=== PATIENT | male | born 1935 | race Caucasian/White ===

== ENCOUNTER 2018-03-29 09:21 | Emergency (ER) | payer MEDICARE, OTHER ==
[2018-03-29] MEDS ORDERED: Sodium Chloride 0.9% 300 ML IV ONE (09:32)
[2018-03-29] MEDS ORDERED: Sodium Chloride 0.9% 10 ML Syringe FLUSH PRN (09:32)
[2018-03-29] MEDS: fentaNYL 250 MCG/5 ML SDV IVPUSH ONE ×4 (09:44→10:44)
[2018-03-29] MEDS ORDERED: Heparin Sodium 5,000 UNITS/0.5 ML Syringe IVPUSH ONE (09:45)
[2018-03-29] MEDS ORDERED: Tenecteplase 50 MG Kit IV ONE (10:00)
--- NOTE | 2018-03-29 10:13 | CR ---
DATE OF SERVICE: 03/29/18 CLINICAL DATA: chest pain AP PORTABLE CHEST: The exam is mismarked for left and right. The heart size is normal. The aorta is ectatic. The patient has taken a poor inspiration. The lungs appear clear. No pneumothorax. No pleural effusions. No evidence of acute intrathoracic disease. ADDENDUM: The labeling on x-ray has been corrected in PACS. [id number] MTDD
--- NOTE | 2018-03-29 10:14 | EDM.PDOC ---
ED HPI GENERAL MEDICAL PROBLEM - General Chief Complaint: Chest Pain Stated Complaint: chest pain Time Seen by Provider: 03/29/18 09:25 Source of Information: Reports: Patient, EMS, Family, RN History Limitations: Reports: No Limitations - History of Present Illness INITIAL COMMENTS - FREE TEXT/NARRATIVE: 82 yr male presents with chest pain, started 830am this am while doing chores in house. Ambulance picked up pt at home, EKG done, ASA and nitro given en route. EKG repeated and STEMI noted. inferior-lateral with heart rate 40's on admit. Contact [facility] to assist with documentation and with physcian assist. Pain 7/10 on admit. Pt allergic to MS with nausea and sweaty reaction. Pt is alert and talkative. Fentanyl given X 2 for relief of pain. Pt noted hx of Htn and takes losartan/Hctz and levothyroxine and baby ASA daily. States he has been healthy and no other health concerns. Troponins 1.8 and elevated. Contact [facility], Cardiology Dr Bradley accepted pt and Plavix given, TNK started and Heparin bolus and maintenance qtt started. Pt states pain is some improved. Most recent ETA of 10:40 this am. 660 of Nacl in IV for now. Pain is about 1-2/10 now. is on her way to [facility], name is Mandy. . - Related Data Allergies Allergy/AdvReac Type Severity Reaction Status Date / Time morphine Allergy Nausea and Verified 03/29/18 10:32 Vomiting Penicillins Allergy Cannot Verified 03/29/18 10:32 Remember Sulfa (Sulfonamide Allergy Cannot Verified 03/29/18 10:32 Antibiotics) Remember Home Meds: Home Meds Aspirin [Shay Chewable] 81 mg PO DAILY 03/29/18 [History] Levothyroxine 75 mcg PO ACBREAKFAST 03/29/18 [History] Losartan/Hydrochlorothiazide [Losartan-HCTZ 50-12.5 MG] 1 each PO DAILY [History] ED ROS GENERAL - Review of Systems Review Of Systems: See Below Constitutional: Reports: Diaphoresis HEENT: Reports: Glasses Respiratory: Reports: No Symptoms Cardiovascular: Reports: Chest Pain. Denies: Edema Endocrine: Reports: No Symptoms GI/Abdominal: Reports: No Symptoms : Reports: No Symptoms Musculoskeletal: Reports: No Symptoms Skin: Reports: Diaphoresis, Other (pink, warm, moist) Neurological: Reports: No Symptoms. Denies: Confusion, Dizziness Psychiatric: Reports: No Symptoms Hematologic/Lymphatic: Reports: No Symptoms Immunologic: Reports: No Symptoms ED EXAM, GENERAL - Physical Exam Exam: See Below Exam Limited By: No Limitations General Appearance: Alert, Mild Distress Ears: Hearing Loss Nose: Normal Inspection, Normal Mucosa Throat/Mouth: Normal Lips, Normal Voice, No Airway Compromise Head: Atraumatic, Normocephalic Neck: Normal Inspection, Supple, Non-Tender Respiratory/Chest: Lungs Clear, Normal Breath Sounds Cardiovascular: Regular Rate, Rhythm, No Edema GI/Abdominal: Normal Bowel Sounds, Soft, Non-Tender Back Exam: No: Paraspinal Tenderness, Vertebral Tenderness Extremities: Normal Inspection, Normal Range of Motion, Non-Tender, No Pedal Edema Neurological: Alert, Oriented, Normal Cognition Psychiatric: Normal Affect, Normal Mood Skin Exam: Warm, Intact, Diaphoretic Lymphatic: No Adenopathy Course - Orders/Labs/Meds Orders: Active Orders 24 hr Category Date Time Status Cardiac Monitoring [RC] .As Directed Care 03/29/18 09:33 Active EKG Documentation Completion [RC] ASDIRECTED Care 03/29/18 09:34 Active Heparin Sodium/D5W [Heparin 25,000 Units in D5W 500 ML] Med 03/29/18 10:45 Active 25,000 units in 500 ml IV TITRATE Peripheral IV Insertion Adult [OM.PC] Stat Oth 03/29/18 09:32 Ordered Medication Orders Heparin Sodium/Dextrose (Heparin 25,000 Units In D5w 500 Ml) 25,000 units in 500 mls @ 19.08 mls/hr IV TITRATE BRUCE; Protocol Labs: Laboratory Tests 03/29/18 03/29/18 03/29/18 Range/Units 09:25 09:25 09:25 WBC 9.1 (4.0-11.0) K/uL RBC 4.72 (4.50-6.50) M/uL Hgb 14.7 (13.0-18.0) g/dL Hct 43.2 (40.0-54.0) % MCV 92 (76-96) fL MCH 31.1 (27.0-32.0) pg MCHC 34.0 (31.0-35.0) g/dL RDW 13.2 (11.0-16.0) % Plt Count 239 (150-400) K/uL MPV 11.0 H (6.0-10.0) fL Neut % (Auto) 46.8 (45.0-70.0) % Lymph % (Auto) 38.3 (20.0-40.0) % Gonzales % (Auto) 12.7 H (3.0-10.0) % Eos % (Auto) 1.8 (1.0-5.0) % Baso % (Auto) 0.4 (0.0-0.5) % Neut # (Auto) 4.27 (2.00-7.50) K/uL Lymph # (Auto) 3.50 (1.50-4.00) K/uL Gonzales # (Auto) 1.16 H (0.20-0.80) K/uL Eos # (Auto) 0.16 (0.04-0.40) K/uL Baso # (Auto) 0.04 (0.02-0.10) K/uL APTT 23.7 L (24.4-33.2) SECONDS Sodium (136-145) mmol/L Potassium (3.5-5.1) mmol/L Chloride (98-107) mmol/L Carbon Dioxide (21.0-32.0) mmol/L Anion Gap (5.0-15.0) mmol/L BUN (8-26) mg/dL Creatinine (0.70-1.30) mg/dL Est Cr Clr Drug Dosing Estimated GFR (MDRD) (>60) MLS/MIN BUN/Creatinine Ratio (6-25) Glucose (74-100) mg/dL Calcium (8.5-10.1) mg/dL Total Bilirubin (0.0-1.0) mg/dL AST (15-37) U/L ALT (12-78) U/L Alkaline Phosphatase (46-116) U/L Troponin I (0.000-0.060) ng/mL Total Protein (6.4-8.2) g/dL Albumin (3.4-5.0) g/dL Globulin (2.2-4.2) g/dL Albumin/Globulin Ratio (0.8-2.0) TSH, Ultra Sensitive 1.859 (0.358-3.740) uIU/mL 03/29/18 Range/Units 09:32 WBC (4.0-11.0) K/uL RBC (4.50-6.50) M/uL Hgb (13.0-18.0) g/dL Hct (40.0-54.0) % MCV (76-96) fL MCH (27.0-32.0) pg MCHC (31.0-35.0) g/dL RDW (11.0-16.0) % Plt Count (150-400) K/uL MPV (6.0-10.0) fL Neut % (Auto) (45.0-70.0) % Lymph % (Auto) (20.0-40.0) % Gonzales % (Auto) (3.0-10.0) % Eos % (Auto) (1.0-5.0) % Baso % (Auto) (0.0-0.5) % Neut # (Auto) (2.00-7.50) K/uL Lymph # (Auto) (1.50-4.00) K/uL Gonzales # (Auto) (0.20-0.80) K/uL Eos # (Auto) (0.04-0.40) K/uL Baso # (Auto) (0.02-0.10) K/uL APTT (24.4-33.2) SECONDS Sodium 137 (136-145) mmol/L Potassium 4.0 (3.5-5.1) mmol/L Chloride 100 (98-107) mmol/L Carbon Dioxide 23.7 (21.0-32.0) mmol/L Anion Gap 17.3 H (5.0-15.0) mmol/L BUN 19 (8-26) mg/dL Creatinine 1.26 (0.70-1.30) mg/dL Est Cr Clr Drug Dosing TNP Estimated GFR (MDRD) 55 L (>60) MLS/MIN BUN/Creatinine Ratio 15.1 (6-25) Glucose 120 H (74-100) mg/dL Calcium 8.6 (8.5-10.1) mg/dL Total Bilirubin 0.6 (0.0-1.0) mg/dL AST 34 (15-37) U/L ALT 23 (12-78) U/L Alkaline Phosphatase 48 (46-116) U/L Troponin I 1.823 H* (0.000-0.060) ng/mL Total Protein 7.0 (6.4-8.2) g/dL Albumin 3.4 (3.4-5.0) g/dL Globulin 3.6 (2.2-4.2) g/dL Albumin/Globulin Ratio 0.9 (0.8-2.0) TSH, Ultra Sensitive (0.358-3.740) uIU/mL Meds: Medications Generic Name Dose Route Start Last Admin Trade Name Freq PRN Reason Stop Dose Admin Heparin Sodium/Dextrose 25,000 units in 500 mls @ 19.08 mls/hr 03/29/18 10:45 Heparin 25,000 Units In D5w 500 Ml IV TITRATE BRUCE Protocol 12 UNITS/KG/HR Discontinued Medications Generic Name Dose Route Start Last Admin Trade Name Freq PRN Reason Stop Dose Admin Clopidogrel Bisulfate 75 mg 03/29/18 10:37 03/29/18 09:52 Plavix PO 03/29/18 10:38 75 mg ONETIME ONE Administration Fentanyl 25 mcg 03/29/18 10:42 03/29/18 10:44 Sublimaze IVPUSH 03/29/18 10:43 25 mcg ONETIME ONE Administration Fentanyl 50 mcg 03/29/18 09:45 03/29/18 10:04 Sublimaze IVPUSH 03/29/18 09:46 50 mcg ONETIME ONE Administration Fentanyl 50 mcg 03/29/18 16:17 Sublimaze IVPUSH 03/29/18 16:18 ONETIME ONE Heparin Sodium (Porcine) 4,000 units 03/29/18 09:45 03/29/18 09:54 Heparin Sodium IVPUSH 03/29/18 09:46 4,000 units ONETIME ONE Administration Sodium Chloride 300 mls @ 1,000 mls/hr 03/29/18 09:32 03/29/18 09:24 Normal Saline IV 03/29/18 09:49 999 mls/hr .BOLUS ONE Administration Sodium Chloride 1,000 mls @ 75 mls/hr 03/29/18 10:35 Normal Saline IV ASDIRECTED BRUCE Sodium Chloride 10 ml 03/29/18 09:32 Saline Flush FLUSH ASDIRECTED PRN Keep Vein Open Tenecteplase 40 mg 03/29/18 10:00 03/29/18 09:59 Tnkase IV 03/29/18 10:01 40 mg ONETIME ONE Administration Protocol - Re-Assessments/Exams Free Text/Narrative Re-Assessment/Exam: 03/29/18 10:18 Pt is resting and pain is 1-2/10. TNK is administered, heparin qtt is going, Plavix was given. X-ray chest 1V completed and radiology contacted provider and states no abnormal noted. Julia is continuing with notes for the pt. Cholo Thakur [facility] on way for transport and contacted them with update on pt. 03/29/18 10:47 Pt states his pain comes and goes Fentanyl 25 given IV now. States pain is 1-2/10 now. Pt smiling and talking about family. Cholo Thak[facility] called to update on ETA and about here. 03/29/18 11:00 BENNETT [facility] is here and transfer of care with update on pt status and treatment thus far. Heparin IV qtt continues 950 units/hr (12 units/kg/hr) (weight of 79.5 kg). Oxygen at 4LPM and SpO2 maintained 95-97%. BP stable 109/68. Heart rate, bradycardic at rate of 40-60 with possible heart block. Pain has been controlled with Fentanyl 25-50 mcg IV as needed, as he has had a reaction of itchiness with the Morphine Sulfate in the past. Pt transferred to [facility], to Dr Bradley, cardiology. 11:17 pt transferred. Departure - Departure Time of Disposition: 11:17 Disposition: DC/Tfer to Acute Hospital 02 Reason for Transfer *Q: Primary PCI Indicated Condition: Good Clinical Impression: Acute myocardial infarction Referrals: PCP,None [Primary Care Provider] - Forms: ED Department Discharge - My Orders Last 24 Hours: My Active Orders 03/29/18 09:32 Peripheral IV Insertion Adult [OM.PC] Stat 03/29/18 09:33 Cardiac Monitoring [RC] .As Directed 03/29/18 09:34 EKG Documentation Completion [RC] ASDIRECTED 03/29/18 10:45 Heparin Sodium/D5W [Heparin 25,000 Units in D5W 500 ML] 25,000 units in 500 ml IV TITRATE - Assessment/Plan Last 24 Hours: My Active Orders 03/29/18 09:32 Peripheral IV Insertion Adult [OM.PC] Stat 03/29/18 09:33 Cardiac Monitoring [RC] .As Directed 03/29/18 09:34 EKG Documentation Completion [RC] ASDIRECTED 03/29/18 10:45 Heparin Sodium/D5W [Heparin 25,000 Units in D5W 500 ML] 25,000 units in 500 ml IV TITRATE Plan: [facility] is here and transfer of care with update on pt status and treatment thus far. Heparin IV qtt continues 950 units/hr (12 units/kg/hr) (weight of 79.5 kg). Oxygen at 4LPM and SpO2 maintained 95-97%. BP stable 109/68. Heart rate, bradycardic at rate of 40-60 with possible heart block. Pain has been controlled with Fentanyl 25-50 mcg IV as needed, as he has had a reaction of itchiness with the Morphine Sulfate in the past. Pt transferred to [facility], to Dr Bradley, cardiology.
[2018-03-29] MEDS ORDERED: Sodium Chloride 0.9% 1,000 ML IV SCH (10:35)
[2018-03-29] MEDS ORDERED: Clopidogrel 75 MG Tab PO ONE (10:37)
[2018-03-29] MEDS ORDERED: Heparin Sodium/D5W 25,000 UNITS/500 ML BAG IV SCH (10:45)
[2018-03-29] MEDS ORDERED: Nitroglycerin 0.4 MG Tab.SL ONE (11:40)
[2018-03-29] MEDS ORDERED: Aspirin 81 MG Tab.EC ONE (11:40)
[2018-03-29] MEDS ORDERED: fentaNYL 250 MCG/5 ML SDV IVPUSH ONE (16:17)
== END 2018-03-29 11:17 ==
LOC: LB.ED 09:21
DX: I21.9 Acute myocardial infarction, unspecified (principal); Z79.82 Long term (current) use of aspirin; Z79.899 Other long term (current) drug therapy; Z88.5 Allergy status to narcotic agent; Z88.0 Allergy status to penicillin; Z88.2 Allergy status to sulfonamides
CPT/HCPCS: 36415; 71045; 80053; 84443; 84484; 85025; 85730; 93005; 96374; 96375; 99285-25; A9270-GY; J1644; J1644-GY; J3010; J3101; J7030; J7050

== ENCOUNTER 2018-04-17 08:54 | Emergency (ER) | payer MEDICARE, OTHER ==
--- NOTE | 2018-04-17 09:17 | EDM.PDOC ---
ED HPI GENERAL MEDICAL PROBLEM - General Chief Complaint: General Stated Complaint: low blood pressure Time Seen by Provider: 04/17/18 09:00 Source of Information: Reports: Patient History Limitations: Reports: No Limitations - History of Present Illness INITIAL COMMENTS - FREE TEXT/NARRATIVE: Pt is 82 /male who presents to the emergency room with c/o low blood pressure. Pt claims the he ate his breakfast around 8 am today and was sitting. He tried to get up and felt dizzy and lightheaded, but did not pass out. He went and checked his blood pressure, initial blood pressure was 63/30mmhg. He repeated it in next few minutes and it was 73/52mmhg. The dizziness last for about 30 minutes and resolved. His blood pressure still remained in systolic 70s. Pt claims that he felt a little pressure in his chest when he walked from home into the car, but it resolved.Presently not dizzy. Patient's inital vitals were Temp 98.7F ,Pulse of 82/min, BP was 120/72mmhg and respi of 18. Onset: Today Onset Date: 04/17/18 Onset Time: 08:00 Duration: Resolved Prior to Arrival Improves with: Reports: None Worsens with: Reports: None Associated Symptoms: Denies: Confusion, Chest Pain, Cough, Diaphoresis, Fever/ Chills, Nausea/Vomiting, Rash, Seizure, Shortness of Breath, Weakness - Related Data Allergies Allergy/AdvReac Type Severity Reaction Status Date / Time morphine Allergy Nausea and Verified 04/17/18 10:03 Vomiting Penicillins Allergy Cannot Verified 04/17/18 10:03 Remember Sulfa (Sulfonamide Allergy Cannot Verified 04/17/18 10:03 Antibiotics) Remember Home Meds: Home Meds Aspirin [Shay Chewable] 81 mg PO DAILY 03/29/18 [History] Levothyroxine 75 mcg PO ACBREAKFAST 03/29/18 [History] Losartan/Hydrochlorothiazide [Losartan-HCTZ 50-12.5 MG] 1 each PO DAILY [History] atorvaSTATin Calcium [Lipitor] 40 mg PO BEDTIME 04/17/18 [History] ED ROS GENERAL - Review of Systems Review Of Systems: See Below Constitutional: Denies: Fever, Chills, Weakness HEENT: Denies: Rhinitis, Throat Pain Respiratory: Denies: Shortness of Breath, Pleuritic Chest Pain, Cough, Sputum Cardiovascular: Reports: Lightheadedness. Denies: Chest Pain GI/Abdominal: Denies: Abdominal Pain, Nausea, Vomiting : Denies: Dysuria, Flank Pain Musculoskeletal: Denies: Joint Pain, Joint Swelling Skin: Denies: Bruising, Pruritis, Rash Neurological: Reports: Dizziness. Denies: Confusion, Headache, Numbness, Tingling, Trouble Speaking, Difficulty Walking, Weakness ED EXAM, GENERAL - Physical Exam Exam: See Below Exam Limited By: No Limitations General Appearance: Alert, WD/WN, No Apparent Distress, Anxious Eye Exam: Bilateral Eye: EOMI, PERRL Ears: Normal External Exam, Normal Canal, Hearing Grossly Normal, Normal TMs Ear Exam: Bilateral Ear: Auricle Normal, Canal Normal, TM normal Nose: Normal Inspection, Normal Mucosa, No Blood Throat/Mouth: Normal Inspection, Normal Lips, Normal Teeth, Normal Gums, Normal Oropharynx, Normal Voice, No Airway Compromise Head: Atraumatic Neck: Normal Inspection, Supple, Non-Tender, Full Range of Motion Respiratory/Chest: No Respiratory Distress, Lungs Clear, Normal Breath Sounds, No Accessory Muscle Use, Chest Non-Tender Cardiovascular: Normal Peripheral Pulses, Regular Rate, Rhythm, No Edema, No Gallop, No JVD, No Murmur, No Rub Peripheral Pulses: 2+: Carotid (L), Carotid (R), Radial (L), Radial (R) GI/Abdominal: Normal Bowel Sounds, Soft, Non-Tender, No Organomegaly, No Distention, No Abnormal Bruit, No Mass Extremities: Normal Inspection, Normal Range of Motion, Non-Tender, No Pedal Edema Neurological: Alert, Oriented, CN II-XII Intact, Normal Cognition, Normal Gait, Normal Reflexes, No Motor/Sensory Deficits Skin Exam: Warm, Intact EKG INTERPRETATION EKG Date: 04/17/18 Time: 09:15 Rhythm: NSR ST-T: Elevated (lead 2,3 and AVF) EKG Interpretation Comments: Does show ST elevtion in lead 2,3 and AVF, which wee considered chronic Course - Vital Signs Text/Narrative:: Pt's initial vitals were stable. His heart rate has been in 80s on monitor. He was started on oxygen 2 liters per minute. Cardiac lab work and chest X-ray was ordered. His EKG did show ST elevation in lead 2,3 and AVF. Air transfer was initiated. I immediately contacted [facility] and discussed finding and symptoms with Dr. Conte [employer] hospital personnel director. After reviewing the EK and patient's present vitals and symptoms, Dr. Conte felt this was not acute inferior SC as patient has these chronic changes. Advised orthostatic readings. When he stood his pressure was 111/62mmhg and hear rate was 9min, sitting went down to 84/40mmgh with rate of 93/min. lying went to 74/48mmhg with rate of 82/ minute. After orthostatic pressure check, Pt's Blood pressure has remained in systolic 70s. I have started Normal saline bolus 500 cc. Pt is asymptomatic and alert. Last pressure was 72/48mmhg. Pt's lab work is back CBC, is normal. CMP is stable. His troponin is positive at 0.348. I have started him on heparin drip 4000 bolus followed by 1000 unite/ hr for now. If the SC is rule out , it can be stopped at [facility].Also his BP after 500 cc of NS bolus remains at systolic 70s. I am hesitant to bolus anymore, considering his cardiac history. tried contacting [facility].I have started him on dopamine drip at 5mcg/min and titrate to keep systolic pressure above 100mmhg. I have discussed the course of events with Dr. Walker.Pt is asymptomatic, but hypotensive on Iv heparin and dopamine drip. Pt has been transferred by [facility]. Further care per Dr. Walker and Dr. Bradley. - Orders/Labs/Meds Orders: Active Orders 24 hr Category Date Time Status EKG Documentation Completion [RC] ASDIRECTED Care 04/17/18 09:11 Ordered Chest 1V Frontal [CR] Stat Exams 04/17/18 09:18 Ordered DOPamine 400 MG in D5W @ 2 MCG/KG/MIN(250ml) Premix Med 04/17/18 10:30 Ordered DOPamine/Dextrose 5%-Water [DOPamine in D5W 400 MG/250 ML] 400 mg in 250 ml IV TITRATE EKG 12 Lead [EK] Routine Ther 04/17/18 09:10 Ordered Medication Orders Dopamine HCl/Dextrose (Dopamine In D5w 400 Mg/250 Ml) 400 mg in 250 mls @ 0 mls /hr IV TITRATE BRUCE; Protocol Labs: Laboratory Tests 04/17/18 04/17/18 04/17/18 Range/Units 09:20 09:20 09:20 WBC 7.8 (4.0-11.0) K/uL RBC 4.42 L (4.50-6.50) M/uL Hgb 13.5 (13.0-18.0) g/dL Hct 40.9 (40.0-54.0) % MCV 93 (76-96) fL MCH 30.5 (27.0-32.0) pg MCHC 33.0 (31.0-35.0) g/dL RDW 13.4 (11.0-16.0) % Plt Count 363 D (150-400) K/uL MPV 10.3 H (6.0-10.0) fL Neut % (Auto) 62.3 (45.0-70.0) % Lymph % (Auto) 25.3 (20.0-40.0) % Citrus % (Auto) 8.7 (3.0-10.0) % Eos % (Auto) 2.9 (1.0-5.0) % Baso % (Auto) 0.8 H (0.0-0.5) % Neut # (Auto) 4.88 (2.00-7.50) K/uL Lymph # (Auto) 1.98 (1.50-4.00) K/uL [place] # (Auto) 0.68 (0.20-0.80) K/uL Eos # (Auto) 0.23 (0.04-0.40) K/uL Baso # (Auto) 0.06 (0.02-0.10) K/uL PT (9.0-11.5) sec INR (1.0-3.5) APTT 28.0 (24.4-33.2) SECONDS Sodium 137 (136-145) mmol/L Potassium 4.2 (3.5-5.1) mmol/L Chloride 98 (98-107) mmol/L Carbon Dioxide 26.8 (21.0-32.0) mmol/L Anion Gap 16.4 H (5.0-15.0) mmol/L BUN 17 (8-26) mg/dL Creatinine 1.64 H D (0.70-1.30) mg/dL Est Cr Clr Drug Dosing TNP Estimated GFR (MDRD) 41 L (>60) MLS/MIN BUN/Creatinine Ratio 10.4 (6-25) Glucose 115 H D (74-100) mg/dL Calcium 8.7 (8.5-10.1) mg/dL Total Bilirubin 0.7 (0.0-1.0) mg/dL AST 23 (15-37) U/L ALT 29 (12-78) U/L Alkaline Phosphatase 59 (46-116) U/L Troponin I 0.348 H* D (0.000-0.060) ng/mL Total Protein 7.5 (6.4-8.2) g/dL Albumin 3.2 L (3.4-5.0) g/dL Globulin 4.3 H (2.2-4.2) g/dL Albumin/Globulin Ratio 0.7 L (0.8-2.0) 04/17/18 Range/Units 09:20 WBC (4.0-11.0) K/uL RBC (4.50-6.50) M/uL Hgb (13.0-18.0) g/dL Hct (40.0-54.0) % MCV (76-96) fL MCH (27.0-32.0) pg MCHC (31.0-35.0) g/dL RDW (11.0-16.0) % Plt Count (150-400) K/uL MPV (6.0-10.0) fL Neut % (Auto) (45.0-70.0) % Lymph % (Auto) (20.0-40.0) % [place] % (Auto) (3.0-10.0) % Eos % (Auto) (1.0-5.0) % Baso % (Auto) (0.0-0.5) % Neut # (Auto) (2.00-7.50) K/uL Lymph # (Auto) (1.50-4.00) K/uL [place] # (Auto) (0.20-0.80) K/uL Eos # (Auto) (0.04-0.40) K/uL Baso # (Auto) (0.02-0.10) K/uL PT 10.6 (9.0-11.5) sec INR 1.1 (1.0-3.5) APTT (24.4-33.2) SECONDS Sodium (136-145) mmol/L Potassium (3.5-5.1) mmol/L Chloride (98-107) mmol/L Carbon Dioxide (21.0-32.0) mmol/L Anion Gap (5.0-15.0) mmol/L BUN (8-26) mg/dL Creatinine (0.70-1.30) mg/dL Est Cr Clr Drug Dosing Estimated GFR (MDRD) (>60) MLS/MIN BUN/Creatinine Ratio (6-25) Glucose (74-100) mg/dL Calcium (8.5-10.1) mg/dL Total Bilirubin (0.0-1.0) mg/dL AST (15-37) U/L ALT (12-78) U/L Alkaline Phosphatase (46-116) U/L Troponin I (0.000-0.060) ng/mL Total Protein (6.4-8.2) g/dL Albumin (3.4-5.0) g/dL Globulin (2.2-4.2) g/dL Albumin/Globulin Ratio (0.8-2.0) Meds: Medications Generic Name Dose Route Start Last Admin Trade Name Freq PRN Reason Stop Dose Admin Dopamine HCl/Dextrose 400 mg in 250 mls @ 0 mls/hr 04/17/18 10:30 Dopamine In D5w 400 Mg/250 Ml IV TITRATE BRUCE Protocol 2 MCG/KG/MIN Discontinued Medications Generic Name Dose Route Start Last Admin Trade Name Freq PRN Reason Stop Dose Admin Heparin Sodium (Porcine) 4,000 units 04/17/18 10:24 Heparin Sodium IVPUSH 04/17/18 10:25 ONETIME ONE Departure - Departure Time of Disposition: 10:40 Disposition: DC/Tfer to Acute Hospital 02 Condition: Fair Clinical Impression: CAD (coronary artery disease), Hypotension, Elevated troponin - Discharge Information *PRESCRIPTION DRUG MONITORING PROGRAM REVIEWED*: Not Applicable *COPY OF PRESCRIPTION DRUG MONITORING REPORT IN PATIENT MILAN: Not Applicable Forms: ED Department Discharge - Problem List & Annotations (1) CAD (coronary artery disease) SNOMED Code(s): 61107132 Code(s): I25.10 - ATHSCL HEART DISEASE OF [place] CORONARY ARTERY W/O ANG PCTRS Status: Acute (2) Elevated troponin SNOMED Code(s): 396159174, 948291518, 721044582 Code(s): R74.8 - ABNORMAL LEVELS OF OTHER SERUM ENZYMES Status: Acute (3) Hypotension SNOMED Code(s): 64272409 Code(s): I95.9 - HYPOTENSION, UNSPECIFIED Status: Acute - Problem List Review Problem List Initiated/Reviewed/Updated: Yes - My Orders Last 24 Hours: My Active Orders 04/17/18 09:10 EKG 12 Lead [EK] Routine 04/17/18 09:11 EKG Documentation Completion [RC] ASDIRECTED 04/17/18 09:18 Chest 1V Frontal [CR] Stat 04/17/18 10:30 DOPamine 400 MG in D5W @ 2 MCG/KG/MIN(250ml) Premix DOPamine/Dextrose 5%-Water [ DOPamine in D5W 400 MG/250 ML] 400 mg in 250 ml IV TITRATE - Assessment/Plan Last 24 Hours: My Active Orders 04/17/18 09:10 EKG 12 Lead [EK] Routine 04/17/18 09:11 EKG Documentation Completion [RC] ASDIRECTED 04/17/18 09:18 Chest 1V Frontal [CR] Stat 04/17/18 10:30 DOPamine 400 MG in D5W @ 2 MCG/KG/MIN(250ml) Premix DOPamine/Dextrose 5%-Water [ DOPamine in D5W 400 MG/250 ML] 400 mg in 250 ml IV TITRATE Assessment:: Hypotensive episode with Dizziness. CAD with recent stent placement. Elevated troponins Plan: Pt's initial vitals were stable. His heart rate has been in 80s on monitor. He was started on oxygen 2 liters per minute. Cardiac lab work and chest X-ray was ordered. His EKG did show ST elevation in lead 2,3 and AVF. Air transfer was initiated. I immediately contacted [facility] and discussed finding and symptoms with Dr. Conte [employer] hospital personnel director. After reviewing the EK and patient's present vitals and symptoms, Dr. Conte felt this was not acute inferior SC as patient has these chronic changes. Advised orthostatic readings. When he stood his pressure was 111/62mmhg and hear rate was 9min, sitting went down to 84/40mmgh with rate of 93/min. lying went to 74/48mmhg with rate of 82/ minute. After orthostatic pressure check, Pt's Blood pressure has remained in systolic 70s. I have started Normal saline bolus 500 cc. Pt is asymptomatic and alert. Last pressure was 72/48mmhg. Pt's lab work is back CBC, is normal. CMP is stable. His troponin is positive at 0.348. I have started him on heparin drip 4000 bolus followed by 1000 unite/ hr for now. If the SC is rule out , it can be stopped at [facility].Also his BP after 500 cc of NS bolus remains at systolic 70s. I am hesitant to bolus anymore, considering his cardiac history. tried contacting [place].I have started him on dopamine drip at 5mcg/min and titrate to keep systolic pressure above 100mmhg. I have discussed the course of events with Dr. Walker.Pt is asymptomatic, but hypotensive on Iv heparin and dopamine drip. Pt has been transferred by [facility]. Further care per Dr. Walker and Dr. Bradley.
[2018-04-17] MEDS ORDERED: Aspirin 81 MG Tab.Chew PO ONE (09:20)
[2018-04-17] MEDS ORDERED: Sodium Chloride 0.9% 1,000 ML IV ONE (09:45)
[2018-04-17] MEDS ORDERED: Heparin Sodium/D5W 25,000 UNITS/500 ML BAG IV SCH (10:23)
[2018-04-17] MEDS ORDERED: Heparin Sodium 5,000 UNITS/0.5 ML Syringe IVPUSH ONE (10:24)
[2018-04-17] MEDS ORDERED: DOPamine/Dextrose 5%-Water 400 MG/250 ML BAG IV SCH (10:30)
--- NOTE | 2018-04-17 11:23 | CR ---
AP PORTABLE CHEST, 04/17/18 Comparison made to a prior exam dated 03/29/18. The heart size is a the upper limits of normal. The aorta is ectatic. There are interstitial infiltrates throughout both lungs with progression from the prior study. There are densities in both lung bases consistent with basilar atelectasis or infiltrate. Pneumonia should be considered. There is a small amount of fluid in the minor fissure on the right. The exam is otherwise unchanged from the prior study. [id number] [facility]
== END 2018-04-17 11:41 ==
LOC: LB.ED 08:54
DX: I95.9 Hypotension, unspecified (principal); I25.10 Atherosclerotic heart disease of native coronary artery without angina pectoris; R79.89 Other specified abnormal findings of blood chemistry; Z88.5 Allergy status to narcotic agent; Z88.2 Allergy status to sulfonamides; Z79.82 Long term (current) use of aspirin
CPT/HCPCS: 36415; 71045; 80053; 84484; 85025; 85610; 85730; 93005; 96365; 99285; A0425; A0429; A9270; J1265; J1644; J7030